=== PATIENT | female | born 1960 | race Caucasian/White ===

== ENCOUNTER 2019-02-21 11:59 | Emergency (ER) | payer OTHER ==
[~2019-02-21] VITALS: Ht 170.2 cm; Wt 74.8 kg
[~2019-02-21 11:59] MED LIST: ATRO1TAB PO; GABA400C PO; HYDR-5123 PO; LEFL10TA PO; ORE25 PO
[2019-02-21 12:08] VITALS: BP 138/78
--- NOTE | 2019-02-21 13:08 | NUR ---
58/F C/O HEADACHE X3 MONTHS, L NECK/SHOULDER PAIN AND STIFFNESS X3 DAYS. PT ALSO C/O NOTICING SWOLLEN LYMPH NODES ON NECK 4 MONTHS AGO. PT HAS BEEN FOLLOWING UP WITH PCP AND SPECIALISTS. REPORTS CHRONIC COUGH. DENIES FEVER. PT AWAKE AND ALERT, SKIN NORMAL COLOR WARM AND DRY, RR EVEN AND UNLABORED. HX LUPUS, ARTHRITIS, FIBROMYALGIA, HTN RX NORCO, LISINOPRIL, LASIX, BISCODYL, DULOXETINE
--- NOTE | 2019-02-21 13:32 | NUR ---
Patient taken to CT scan via wheelchair by tech.
[2019-02-21 13:45] LABS: HEMATOCRIT 38.9 % (36-48); MEAN CORPUSCULAR HEMOGLOBIN 31 pg (27-31); MEAN CORPUSCULAR HGB CONC 33 g/dL (33-37); MEAN CORPUSCULAR VOLUME 92.9 fL (80-94); PLATELET COUNT (AUTO) 454 K/uL (140-450); RED BLOOD CELL COUNT(AUTO) 4.19 MIL/uL (4.20-5.40); RED CELL DISTRIBUTION WIDTH 13.8 % (11.6-13.7)
[2019-02-21 13:55] LABS: BASOPHILS % (MANUAL) 0 % (0-2); EOSINOPHILS % (MANUAL) 1 % (0-4); LYMPHOCYTES % (MANUAL) 28 % (20-46); MONOCYTES % (MANUAL) 10 % (5-12)
[2019-02-21 13:58] LABS: ANION GAP 12.3 (8-16); CARBON DIOXIDE 27.3 mmol/L (21-32); CREATININE 0.8 mg/dL (0.6-1.3); POTASSIUM 3.6 mmol/L (3.5-5.1)
--- NOTE | 2019-02-21 14:00 | NUR ---
PT BROUGHT BACK FROM CT VIA WHEELCHAIR BY TECH.
[2019-02-21 14:04] LABS: ALBUMIN 2.8 g/dL (3.4-5.0); TOTAL BILIRUBIN 0.3 mg/dL (0.0-1.0)
--- NOTE | 2019-02-21 14:09 | NUR ---
UA walked to lab.
[2019-02-21 14:47] LABS: APPEARANCE,URINE CLEAR (CLEAR); BILIRUBIN,URINE NEGATIVE (NEGATIVE); BLOOD, URINE NEGATIVE (NEGATIVE); COLOR,URINE YELLOW (YELLOW); LEUKOCYTE ESTERASE ,URINE NEGATIVE (NEGATIVE); NITRITE, URINE NEGATIVE (NEGATIVE); UGLUCOSE NEGATIVE (NEGATIVE)
--- NOTE | 2019-02-21 15:05 | NUR ---
PT IS RESTING IN BED WITH EYES OPENED.
--- NOTE | 2019-02-21 16:41 | NUR ---
PT IS RESTING IN BED WITH EYES OPENED.
--- NOTE | 2019-02-21 17:22 | NUR ---
PT IS RESTING IN BED. WATER AND CRACKERS PROVIDED TO PT.
[2019-02-21 18:04] VITALS: BP 127/75
--- NOTE | 2019-02-21 18:04 | NUR ---
Patient discharged with v/s stable by Dr. Dunn. Rx of Triamterene/Hydrochlorothiazide given.
== END 2019-02-21 18:04 | disposition home or self-care (01) ==
LOC: MED 11:59
DX: T46.4X5A Adverse effect of angiotensin-converting-enzyme inhibitors, initial encounter (principal); Y92.89 Other specified places as the place of occurrence of the external cause; R53.1 Weakness; J45.909 Unspecified asthma, uncomplicated; E11.9 Type 2 diabetes mellitus without complications; I10 Essential (primary) hypertension; Z98.890 Other specified postprocedural states; Z79.899 Other long term (current) drug therapy; Z79.891 Long term (current) use of opiate analgesic
CPT/HCPCS: 36415; 70490; 71250; 72125; 80053; 81003; 81025; 85025; 85651; 99284

== ENCOUNTER 2019-07-20 16:17 | Emergency (ER) | payer OTHER ==
[~2019-07-20] VITALS: Ht 167.1 cm; Wt 83.0 kg
[2019-07-20 16:29] VITALS: BP 157/63
--- NOTE | 2019-07-20 16:38 | NUR ---
amb to bed 03
--- NOTE | 2019-07-20 16:40 | NUR ---
RAD AT BEDSIDE
--- NOTE | 2019-07-20 16:46 | NUR ---
58 YO FEMALE CO LEFT FOOT PAIN FOR 11D. PT DROPPED A PALLETT ON IT AND IT HAS BEEN SORE SINCE THEN. PT IS ABLE TO AMBULATE BUT THE PAIN IS WORSE. PAIN IS 7/10 WHEN WALKING. PT ALSO STATES THAT MD TOOK HER OFF HER BP MEDS AND SHE HAS HAD DECREASED URINE OUTPUT SINCE THEN.
--- NOTE | 2019-07-20 17:47 | NUR ---
APPLIED ORTHO SHOE TO LEFT FOOT WITHOUT ANY ISSUES
[2019-07-20 17:57] VITALS: BP 157/63
--- NOTE | 2019-07-20 17:58 | NUR ---
Patient discharged with v/s stable. Written and verbal after care instructions given and explained. Patient verbalized understanding. Ambulatory with steady gait. All questions addressed prior to discharge. Advised to follow up with PMD.
--- NOTE | 2019-07-20 17:58 | NUR ---
PT VERBALIZES UNDERSTANDING OF ORTHO SHOE.
== END 2019-07-20 17:58 | disposition home or self-care (01) ==
LOC: MED 16:17
DX: M79.672 Pain in left foot (principal); J45.909 Unspecified asthma, uncomplicated; E11.22 Type 2 diabetes mellitus with diabetic chronic kidney disease; I12.9 Hypertensive chronic kidney disease with stage 1 through stage 4 chronic kidney disease, or unspecified chronic kidney disease; N18.9 Chronic kidney disease, unspecified; Z79.899 Other long term (current) drug therapy; Z88.5 Allergy status to narcotic agent
CPT/HCPCS: 73630; 99283; Q0092

== ENCOUNTER 2021-04-12 20:03 | Emergency (ER) | payer OTHER ==
[~2021-04-12] VITALS: Ht 170.2 cm; Wt 79.4 kg
[~2021-04-12 20:03] MED LIST changes: +HYDR-4004 PO; +HYDR-5080 PO; -HYDR-5123 PO; -ORE25 PO
[2021-04-12 20:10] VITALS: BP 161/91
--- NOTE | 2021-04-12 20:13 | NUR ---
TO LOBBY A/W BED AMBULATORY
[2021-04-12 22:49] LABS: BASOPHILS # (AUTO) 0.1 K/uL (0.00-0.22); BASOPHILS % (AUTO) 1.3 % (0.0-2.0); EOSINOPHILS # (AUTO) 0.5 K/uL (0-0.4); EOSINOPHILS % (AUTO) 4.2 % (0.0-4.0); HEMOGLOBIN 12.8 g/dL (12.0-16.0); LYMPHOCYTES # (AUTO) 2.7 K/uL (2.5-16.5); LYMPHOCYTES % (AUTO) 23.6 % (20.5-51.1); MEAN CORPUSCULAR HEMOGLOBIN 26 pg (27-31); MEAN CORPUSCULAR HGB CONC 33 g/dL (33-37); MEAN CORPUSCULAR VOLUME 79.5 fL (80-94); MONOCYTES % (AUTO) 9.1 % (1.7-9.3); NEUTROPHILS # (AUTO) 7.1 K/uL (1.8-7.7); NEUTROPHILS % (AUTO) 61.8 % (42.2-75.2); PLATELET COUNT (AUTO) 399 K/uL (140-450); RED BLOOD CELL COUNT(AUTO) 4.91 MIL/uL (4.20-5.40); RED CELL DISTRIBUTION WIDTH 19.2 % (11.6-13.7); WHITE BLOOD COUNT (AUTO) 11.4 K/uL (4.8-10.8)
--- NOTE | 2021-04-12 23:00 | NUR ---
RECEIVED IN BED 8 FROM [facility] LAST [id number] [facility] [address] WITH RT EYE PAIN, RT KNEE, WRIST, ELBOW , CHEEK, LEFT WRIST, KNEE, FOOT PAIN.
[2021-04-12 23:14] LABS: ANION GAP 10.1 (8-16); CARBON DIOXIDE 32.3 mmol/L (21-32); CREATININE 0.9 mg/dL (0.6-1.3); POTASSIUM 3.4 mmol/L (3.5-5.1); TOTAL BILIRUBIN 0.2 mg/dL (0.0-1.0)
--- NOTE | 2021-04-13 00:58 | NUR ---
GOPID EXAMINED APPLICATION OF SPLINT AND APPROVED.
[2021-04-13 01:50] VITALS: BP 161/91
== END 2021-04-13 01:50 | disposition home or self-care (01) ==
LOC: MED 20:03
DX: S62.001A Unspecified fracture of navicular [scaphoid] bone of right wrist, initial encounter for closed fracture (principal); J45.909 Unspecified asthma, uncomplicated; I10 Essential (primary) hypertension; E11.9 Type 2 diabetes mellitus without complications; Z79.899 Other long term (current) drug therapy; Z88.5 Allergy status to narcotic agent; W18.30XA Fall on same level, unspecified, initial encounter; Y93.89 Activity, other specified; Y92.89 Other specified places as the place of occurrence of the external cause; Y99.8 Other external cause status
CPT/HCPCS: 29125; 36415; 70450; 70486; 71045; 73030; 73080; 73110; 73562; 80053; 84484; 85025; 93005; 99283; Q0092

== ENCOUNTER 2021-04-24 18:24 | Emergency (ER) | payer OTHER ==
[~2021-04-24] VITALS: Ht 167.6 cm; Wt 77.1 kg
[2021-04-24 18:39] VITALS: BP 144/73
--- NOTE | 2021-04-24 20:03 | NUR ---
PT AMBUALTED TO BED #3 WITH CANE
[2021-04-24 20:34] VITALS: BP 144/73
--- NOTE | 2021-04-24 20:34 | NUR ---
Pt assessment completed by er md. No nursing interventions needed at this time.
== END 2021-04-24 20:47 | disposition home or self-care (01) ==
LOC: MED 18:24
DX: S70.02XA Contusion of left hip, initial encounter (principal); S49.82XA Other specified injuries of left shoulder and upper arm, initial encounter; J45.909 Unspecified asthma, uncomplicated; E11.9 Type 2 diabetes mellitus without complications; I10 Essential (primary) hypertension; Z88.5 Allergy status to narcotic agent; W19.XXXA Unspecified fall, initial encounter; Y93.89 Activity, other specified; Y92.89 Other specified places as the place of occurrence of the external cause; Y99.8 Other external cause status
CPT/HCPCS: 72170; 99283

== ENCOUNTER 2022-05-15 13:24 | Emergency (ER) | payer OTHER ==
[~2022-05-15] VITALS: Ht 167.6 cm; Wt 77.1 kg
[2022-05-15 13:31] VITALS: BP 145/94
--- NOTE | 2022-05-15 13:35 | NUR ---
PT AMBULATED TO LOBBY WITH WALKER
--- NOTE | 2022-05-15 13:35 | NUR ---
61/F WALKED WITH WALKER C/O LEFT FOOT PAIN AND SWELLING ONSET 1 MONTH. PT REPORTS BEING SEEN AT URGENT CARE 5 DAYS AGO AND HAD XR DONE. PT STATES RADIOLOGIST CALLED YESTERDAY STATING THERE MAY BE POSSIBLE INFECTION. REPORTS CONSTANT PAIN TO THE LEFT FOOT. PT REPORTS HX LEFT FOOT 5TH DIGIT FRACTURE AND PIN. AAO4, AMBULATORY, VITALS STABLE. PMH: LUPUS, LEFT FOOT 5TH DIGIT FRACTURE AND PIN
[2022-05-15] MEDS ORDERED: IBUPROFEN 600 MG TAB PO ONE (14:35)
[2022-05-15 16:26] VITALS: BP 141/89
--- NOTE | 2022-05-15 16:28 | NUR ---
Patient discharged with v/s stable. Written and verbal after care instructions given and explained for Foot Pain. Patient verbalized understanding. Ambulatory with steady gait. All questions addressed prior to discharge. Advised to follow up with PMD.
== END 2022-05-15 16:28 | disposition home or self-care (01) ==
LOC: MED 13:24
DX: G89.29 Other chronic pain (principal); M79.675 Pain in left toe(s); J45.909 Unspecified asthma, uncomplicated; E11.9 Type 2 diabetes mellitus without complications; I10 Essential (primary) hypertension; Z88.5 Allergy status to narcotic agent; Z79.899 Other long term (current) drug therapy
CPT/HCPCS: 73660; 99283